=== PATIENT | female | born 1940 | race Caucasian/White ===

== ENCOUNTER 2017-03-14 11:49 | Outpatient (CLI) | payer MEDICARE, BC | END 2017-03-14 11:50 | disposition home or self-care (01) | DX: M16.12 Unilateral primary osteoarthritis, left hip (principal) ==

== ENCOUNTER 2017-04-04 10:49 | Outpatient (CLI) | payer MEDICARE, BC | END 2017-04-04 10:50 | disposition home or self-care (01) | DX: M47.896 Other spondylosis, lumbar region (principal); M51.36 Other intervertebral disc degeneration, lumbar region; M47.897 Other spondylosis, lumbosacral region; M51.37 Other intervertebral disc degeneration, lumbosacral region ==

== ENCOUNTER 2018-03-06 08:00 | Outpatient (CLI) | payer BC, MEDICARE | END 2018-03-06 08:01 | disposition home or self-care (01) | LOC: LAB.F 08:00 | PROVIDERS: ATTEND Family Medicine | DX: G44.1 Vascular headache, not elsewhere classified (principal) | CPT/HCPCS: 36415; 85651 ==

== ENCOUNTER 2018-03-21 09:15 | Outpatient (CLI) | payer MEDICARE, OTHER ==
--- NOTE | 2018-03-21 17:13 | Ultrasound Report ---
EXAM: ABDOMEN ULTRASOUND LIMITED, RUQ EXAM DATE: 03/21/2018 09:55 AM. CLINICAL HISTORY: RUQ TENDERNESS PAIN. COMPARISON: None. TECHNIQUE: Real-time scanning was performed with static images obtained. FINDINGS: Liver: Normal in size with increased echogenicity. 15.4 cm. Main portal vein flow: Hepatopetal. Gallbladder: No stones, wall thickening, or pericholecystic fluid. No hyperemia. Reportedly positive sonographic Melo's sign. Biliary System: CBD measures 6 mm. No intrahepatic or extrahepatic ductal dilatation. Other: Right kidney demonstrates no hydronephrosis. Genomics Scientist comments on an ill-defined hypoechoic area within the renal hilum. IMPRESSION: 1. No gallstones identified. Reportedly positive sonographic Melo's sign. No additional evidence of acute cholecystitis. 2. Questionable ill-defined hypoechoic area in the right renal hilum of uncertain significance, could be artifactual. Follow-up renal ultrasound suggested in 6-9 months. 3. Hepatic steatosis. [facility] Referring Provider Line: [phone] SITE ID: [id number]
== END 2018-03-21 09:16 | disposition home or self-care (01) ==
LOC: DI 09:15
PROVIDERS: ATTEND Family Medicine
DX: R10.11 Right upper quadrant pain (principal); K76.0 Fatty (change of) liver, not elsewhere classified
CPT/HCPCS: 76705

== ENCOUNTER 2018-04-04 12:47 | Outpatient (CLI) | payer MEDICARE, OTHER ==
[2018-04-04 13:07] LABS: BASOPHILS # (AUTO) 0.1 10^3/uL (0.0-0.1); BASOPHILS % (AUTO) 0.9 %; EOSINOPHILS # (AUTO) 0.1 10^3/uL (0.0-0.7); EOSINOPHILS % (AUTO) 1.4 %; HGB - HEMOGLOBIN 13.5 g/dL (12.0-16.0); LYMPHOCYTES # (AUTO) 1.9 10^3/uL (1.5-3.5); LYMPHOCYTES % (AUTO) 23.4 %; MEAN CORPUSCULAR HEMOGLOBIN 29.3 pg (27.0-31.0); MEAN CORPUSCULAR HGB CONC 33.1 g/dL (32.0-36.0); MEAN CORPUSCULAR VOLUME 88.6 fL (81.0-99.0); MEAN PLATELET VOLUME 9.3 fL (7.9-10.8); MONOCYTES % (AUTO) 12.4 %; NEUTROPHILS # (AUTO) 4.9 10^3/uL (1.5-6.6); NEUTROPHILS % (AUTO) 61.9 %; PLT - PLATELET COUNT 269 10^3/uL (130-450); RED BLOOD COUNT 4.61 10^6/uL (4.20-5.40); RED CELL DISTRIBUTION WIDTH 12.7 % (12.0-15.0)
[2018-04-04] MEDS ORDERED: IOPAMIDOL-300 100 ML VIAL ONE (13:13)
[2018-04-04] MEDS ORDERED: IOPAMIDOL-300 50 ML VIAL ONE (13:13)
[2018-04-04 13:23] LABS: ALBUMIN 4.3 g/dL (3.2-5.5); ALBUMIN/GLOBULIN RATIO 1.2 (1.0-2.2); BILIRUBIN,TOTAL 0.9 mg/dL (0.2-1.0); CALCIUM 9.5 mg/dL (8.5-10.3); CREATININE 1.1 mg/dL (0.4-1.0)
--- NOTE | 2018-04-05 00:03 | CT Report ---
EXAM: CT ABDOMEN AND PELVIS EXAM DATE: 04/04/2018 02:36 PM. CLINICAL HISTORY: Severe right upper quadrant abdominal pain with NL. COMPARISONS: Ultrasound 03/21/2018. TECHNIQUE: Routine helical CT imaging was performed through the abdomen and pelvis. IV contrast: Yes . Enteric contrast: Yes. Reconstructions: Coronal and sagittal. In accordance with CT protocol optimization, one or more of the following dose reduction techniques w ere utilized for this exam: automated exposure control, adjustment of mA and/or KV based on patient s ize, or use of iterative reconstructive technique. FINDINGS: Lung Bases: Unremarkable. Liver: Minimally fatty. No suspicious masses. Gallbladder/Bile Ducts: Unremarkable. Spleen: Unremarkable. Pancreas: Unremarkable. Adrenal Glands: Unremarkable. Kidneys: Unremarkable. No suspicious masses or hydronephrosis. Peritoneal Cavity/Bowel: Mid sigmoid colon diverticulitis with mild to moderate surrounding inflammat ory changes. No gross perforation or abscess seen. Moderate stool burden. Bowel otherwise appears unremarkable. Pelvic Organs: Post hysterectomy with no adnexal masses seen. The bladder dome is abutted by inflamma tory changes and appears thick walled. No gas within the lumen of the bladder to suggest complete col ovesicular fistula. Vasculature: No aneurysms or other significant abnormality. Bones: No significant abnormality. Other: None. IMPRESSION: 1. Mid sigmoid colon mild to moderate diverticulitis without apparent complication. 2. Inflammatory changes abut the urinary bladder dome which is mildly thickened. No evidence of compl ete colovesicular fistula but patient is at risk. 3. Mildly fatty liver. 4. Moderate stool burden. 5. Post hysterectomy. Results discussed with MICHELLE Garrido at 2350 on 04/04/2018. [facility] Referring Provider Line: [phone] SITE ID: [id number]
[2018-04-05] MEDS ORDERED: IOPAMIDOL-300 100 ML VIAL IVP ONE (12:07)
== END 2018-04-04 12:48 | disposition home or self-care (01) ==
LOC: DI 12:47
PROVIDERS: ATTEND Family Medicine
DX: K57.32 Diverticulitis of large intestine without perforation or abscess without bleeding (principal); K76.0 Fatty (change of) liver, not elsewhere classified; R10.9 Unspecified abdominal pain
CPT/HCPCS: 36415; 74177; 80053; 82150; 83690; 85025; 86140; Q9967

== ENCOUNTER 2018-04-05 11:34 | Emergency (ER) | payer MEDICARE, OTHER ==
[2018-04-05 12:34] LABS: BASOPHILS # (AUTO) 0.1 10^3/uL (0.0-0.1); BASOPHILS % (AUTO) 0.9 %; EOSINOPHILS # (AUTO) 0.1 10^3/uL (0.0-0.7); EOSINOPHILS % (AUTO) 1.2 %; HGB - HEMOGLOBIN 13.1 g/dL (12.0-16.0); LYMPHOCYTES # (AUTO) 1.5 10^3/uL (1.5-3.5); LYMPHOCYTES % (AUTO) 21.7 %; MEAN CORPUSCULAR HEMOGLOBIN 29.4 pg (27.0-31.0); MEAN CORPUSCULAR HGB CONC 33.5 g/dL (32.0-36.0); MEAN CORPUSCULAR VOLUME 87.7 fL (81.0-99.0); MEAN PLATELET VOLUME 9.2 fL (7.9-10.8); MONOCYTES # (AUTO) 1.3 10^3/uL (0.0-1.0); MONOCYTES % (AUTO) 18.7 %; NEUTROPHILS # (AUTO) 4.1 10^3/uL (1.5-6.6); NEUTROPHILS % (AUTO) 57.5 %; PLT - PLATELET COUNT 268 10^3/uL (130-450); RED BLOOD COUNT 4.45 10^6/uL (4.20-5.40); RED CELL DISTRIBUTION WIDTH 12.6 % (12.0-15.0); WHITE BLOOD COUNT 7.1 x10^3/uL (4.8-10.8)
[2018-04-05 12:38] LABS: BILIRUBIN,URINE NEGATIVE (NEGATIVE); GLUCOSE, URINE (UA) NEGATIVE (NEGATIVE); KETONES,URINE (UA) NEGATIVE (NEGATIVE); LEUKOCYTE ESTERASE, URINE NEGATIVE (NEGATIVE); NITRITE,URINE NEGATIVE (NEGATIVE); OCCULT BLOOD,URINE NEGATIVE (NEGATIVE); PROTEIN,URINE NEGATIVE (NEGATIVE); UROBILINOGEN,URINE 0.2 (NORMAL) E.U./dL (NORMAL)
[2018-04-05 12:39] LABS: CLARITY,URINE CLEAR (CLEAR)
[2018-04-05 12:51] LABS: ALBUMIN/GLOBULIN RATIO 1.1 (1.0-2.2); BILIRUBIN,TOTAL 1.1 mg/dL (0.2-1.0); CALCIUM 9.3 mg/dL (8.5-10.3); CREATININE 1.1 mg/dL (0.4-1.0); TOTAL PROTEIN 7.7 g/dL (6.7-8.2)
--- NOTE | 2018-04-05 13:28 | ED Physician Documentation ---
PD HPI ABD PAIN - Stated complaint Stated Complaint: CT RESULTS - Chief complaint Chief Complaint: Abd Pain - History obtained from History obtained from: Patient - History of Present Illness Timing - onset: How many days ago (4-5) Timing - duration: Days Timing - details: Gradual onset, Still present, Waxing and waning Quality: Cramping, Aching, Pain Location: Suprapubic, LLQ Radiation: No: Lower back Improved by: No: Eating Worsened by: No: Eating Associated symptoms: Nausea. No: Fever, Vomiting, Diarrhea (but some loose), Constipation, Melena Similar symptoms before: Has not had sx before Recently seen: Clinic (yesterday and had outpt CT and labs which showed diverticulitis. 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 denies: Fever, Chills Nose: denies: Rhinorrhea / runny nose, Congestion Throat: denies: Sore throat Respiratory: denies: Cough GI: reports: Abdominal Pain, Nausea. denies: Vomiting, Diarrhea, Bloody / black stool : denies: Dysuria, Frequency PD PAST MEDICAL HISTORY - Past Medical History Respiratory: Asthma GI: GERD, Hemorrhoids, Diverticulitis HEENT: Chronic sinusitis Musculoskeletal: Fibromyalgia - Past Surgical History General: Colonoscopy /HISTOLOGY AIDE: section, Hysterectomy HEENT: Tonsil/Adenoidectomy - Present Medications Home Medications: Ambulatory Orders Medication Instructions Recorded Confirmed Cephalexin [Keflex] 500 mg PO BID #14 capsule 04/05/18 Doxycycline Monohydrate 100 mg PO BID #14 tablet 04/05/18 Ondansetron Odt [Zofran] 4 mg TL Q6H PRN #15 tablet 04/05/18 Tramadol HCl 50 mg PO Q6H PRN #12 tablet 04/05/18 - Allergies Allergies/Adverse Reactions: Allergies Allergy/AdvReac Type Severity Reaction Status Date / Time Sulfa (Sulfonamide Allergy Intermediate Dizziness Verified 04/05/18 11:50 Antibiotics) meperidine [From Demerol] Allergy Mild Unknown Verified 04/05/18 11:51 Penicillins Allergy Mild Edema Verified 04/05/18 11:49 - Social History Does the pt smoke?: No Smoking Status: Never smoker Does the pt drink ETOH?: Yes PD ED PE NORMAL - Vitals Vital signs reviewed: Yes - General General: Alert and oriented X 3, Well developed/nourished - HEENT HEENT: Pharynx benign - Neck Neck: Supple, no meningeal sign, No adenopathy - Cardiac Cardiac: RRR, No murmur - Respiratory Respiratory: Clear bilaterally - Abdomen Abdomen: Normal bowel sounds, Soft, Non distended, No organomegaly, Other ( tender lower abd mid to left without percussion, rebound, nor referred tenderness. ) Results - Vitals Vitals: Oxygen O2 Source Room air - Labs Labs: Laboratory Tests 04/05/18 04/05/18 04/05/18 12:15 12:29 12:29 WBC 7.1 RBC 4.45 Hgb 13.1 Hct 39.1 MCV 87.7 MCH 29.4 MCHC 33.5 RDW 12.6 Plt Count 268 MPV 9.2 Neut # 4.1 Lymph # 1.5 [place] # 1.3 H Eos # 0.1 Baso # 0.1 Absolute Nucleated RBC 0.00 Nucleated RBC % 0.0 Sodium 127 L Potassium 4.1 Chloride 93 L Carbon Dioxide 25 Anion Gap 9.0 BUN 17 Creatinine 1.1 H Estimated GFR (MDRD) 48 L Glucose 105 H Calcium 9.3 Total Bilirubin 1.1 H AST 27 ALT 11 Alkaline Phosphatase 58 Total Protein 7.7 Albumin 4.0 Globulin 3.7 Albumin/Globulin Ratio 1.1 Lipase 28 Urine Color YELLOW Urine Clarity CLEAR Urine pH 6.0 Ur Specific [place] 1.010 Urine Protein NEGATIVE Urine Glucose (UA) NEGATIVE Urine Ketones NEGATIVE Urine Occult Blood NEGATIVE Urine Nitrite NEGATIVE Urine Bilirubin NEGATIVE Urine Urobilinogen 0.2 (NORMAL) Ur Leukocyte Esterase NEGATIVE Ur Microscopic Review NOT INDICATED Urine Culture Comments NOT INDICATED - Rads (name of study) abd CT from outpatient Radiology: Final report received (sigmoid diverticulitis with moderate inflammation. No perforation nor abscess. ) PD MEDICAL DECISION MAKING - ED course Complexity details: reviewed results, re-evaluated patient, considered differential (uncomplicated diverticulitis and she does not appear ill, so given IV doses meds and she prefers discahrge. ), d/w patient Departure - Departure Disposition: 01 Home, Self Care Clinical Impression: Diverticulitis of gastrointestinal tract Abdominal pain Qualifiers: Abdominal location: lower abdomen, unspecified Qualified Code(s): R10.30 - Lower abdominal pain, unspecified Condition: Stable Record reviewed to determine appropriate education?: Yes Instructions: ED Diverticulitis Follow-Up: Dagoberto Llamas MD [Primary Care Provider] - Prescriptions: Cephalexin [Keflex] 500 mg PO BID #14 capsule Doxycycline Monohydrate 100 mg PO BID #14 tablet Ondansetron Odt [Zofran] 4 mg TL Q6H PRN #15 tablet PRN Reason: Nausea / Vomiting Tramadol HCl 50 mg PO Q6H PRN #12 tablet PRN Reason: Pain Comments: Drink lots of fluids. Ibuprofen if needed for pain. Add Tylenol and/or tramadol if needed. You do have diverticulitis in the lower intestine. Use the cephalexin and doxycycline antibiotics for that over the next week. He can use ondansetron if needed for nausea. Call your primary care office to make an appointment for mid end of this coming week for follow-up visit. Return sooner if worsening symptoms. Discharge Date/Time: 04/05/18 16:43
[2018-04-05] MEDS ORDERED: DOXYCYCLINE INJ 100 MG in SODIUM CHLORIDE 0.9% MINIBAG 100 ML IV STA (13:58)
[2018-04-05] MEDS ORDERED: cefTRIAXone 1 GM in SODIUM CHLORIDE 0.9% MINIBAG 100 ML IV STA (13:58)
[2018-04-05] MEDS ORDERED: SODIUM CHLORIDE 0.9% 1,000 ML IV ONE (13:58)
[2018-04-05] MEDS ORDERED: ACETAMINOPHEN 1,000 MG/100 ML 100 ML IV STA (13:59)
[2018-04-05] MEDS ORDERED: ONDANSETRON 4 MG/2 ML VIAL IVP STA (13:59)
[2018-04-05 16:15] VITALS: BP 115/63
== END 2018-04-05 16:43 | disposition home or self-care (01) ==
LOC: ED 11:34
DX: K57.32 Diverticulitis of large intestine without perforation or abscess without bleeding (principal); R10.32 Left lower quadrant pain
CPT/HCPCS: 36415; 80053; 81003; 83690; 85025; 96365; 96367; 96368; 96375; 99284; J0131; 81001; 87086